=== PATIENT | female | born 1980 | race Caucasian/White ===

== ENCOUNTER 2018-02-18 14:55 | Observation (INO) ==
[2018-02-18] MEDS ORDERED: ZOFRAN INJ 4 MG VIAL IVP PRN (16:25)
[2018-02-18] MEDS ORDERED: PHENERGAN INJ 25 MG IV PRN (16:25)
[2018-02-18] MEDS ORDERED: D5 NS 1000 ML 1,000 ML IV ONE ×2 (16:25→16:53)
[2018-02-18] MEDS ORDERED: NORCO 5/325 MG TAB PO PRN (16:25)
--- NOTE | 2018-02-18 16:50 | RAD ---
Examination: Abdomen with PA chest, three views History: Pain Findings: PA chest is normal. Supine and upright views of abdomen indicate normal gas pattern, no mass, ascites or visceral enlargement. There are surgical clips in the right upper quadrant. There is no evidence for free air or pathologic calcification. Impression: Postsurgical findings consistent with cholecystectomy. No acute chest or abdominal process identified. Reported By:
[2018-02-18 16:59] LABS: BASOPHILS % (AUTO) 0.3 % (0.2-1.0); EOSINOPHILS % (AUTO) 1.3 % (0.9-2.9); HEMOGLOBIN 13.3 g/dL (12.0-16.0); LYMPHOCYTES # (AUTO) 0.8 X10^3/uL (1.3-2.9); LYMPHOCYTES % (AUTO) 27.6 % (21.0-51.0); MEAN CORPUSCULAR HEMOGLOBIN 26.9 pg (27.0-34.0); MEAN CORPUSCULAR HGB CONC 34.1 g/dL (33.0-35.0); MEAN CORPUSCULAR VOLUME 78.7 fL (80.0-100.0); MEAN PLATELET VOLUME 8.1 fL (7.4-11.0); MONOCYTES # (AUTO) 0.4 x10^3/uL (0.3-0.8); MONOCYTES % (AUTO) 11.9 % (0.0-13.0); NEUTROPHILS # (AUTO) 1.8 x10^3/uL (2.2-4.8); NEUTROPHILS % (AUTO) 58.9 % (42.0-75.0); PLATELET COUNT 207 X10^3/uL (150.0-450.0); RED BLOOD COUNT 4.95 X10^6/uL (3.5-5.4); RED CELL DISTRIBUTION WIDTH 13.5 % (11.6-16.5)
[2018-02-18 17:35] LABS: ALANINE AMINOTRANSFERASE 29 Units/L (12-78); ALBUMIN 3.2 g/dL (3.4-5.0); ALKALINE PHOSPHATASE 45 Units/L (46-116); ASPARTATE AMINO TRANSFERASE 19 Units/L (15-37); BLOOD UREA NITROGEN 8 mg/dL (7-18); CALCIUM 8.4 mg/dL (8.5-10.1); CARBON DIOXIDE 25.7 mmol/L (21-32); CHLORIDE 103 mmol/L (98-107); CREATININE 0.71 mg/dL (0.55-1.02); SODIUM 138 mmol/L (136-145); TOTAL PROTEIN 6.9 g/dL (6.4-8.2); eGFR NON BLACK RACES > 60 (>60)
[2018-02-18 17:40] VITALS: BMI 24.7
[2018-02-18 18:00] LABS: BILIRUBIN,URINE NEGATIVE (NEGATIVE); BLOOD/HEMOGLOBIN,URINE 4+ (NEGATIVE); GLUCOSE, URINE NEGATIVE (NEGATIVE); KETONES,URINE 4+ (NEGATIVE); LEUKOCYTE ESTERASE ,URINE 1+ (NEGATIVE); NITRITES,URINE NEGATIVE (NEGATIVE); PROTEIN,URINE 2+ (NEGATIVE); UROBILINOGEN,URINE NORMAL (NORMAL)
[2018-02-18 18:02] LABS: APPEARANCE,URINE HAZY (CLEAR); COLOR,URINE YELLOW (YELLOW)
[2018-02-18] MEDS ORDERED: NS 1/2 1000 ML IV 1,000 ML IV ONE (18:06)
[2018-02-18 18:07] LABS: BACTERIA,URINE 1+ /HPF (NEGATIVE); MUCUS,URINE MODERATE /HPF (NEGATIVE); SQUAMOUS EPITHELIAL CELL,UR MODERATE /HPF (NEGATIVE)
[2018-02-18] MEDS: NS 1/2 1000 ML IV 1,000 ML IV SCH (18:12)
[2018-02-18] MEDS: PROTONIX INJ 40 MG VIAL IVP SCH ×2 (18:12→22:20)
[2018-02-18] MEDS: CIPRO IV 400 MG PREMIX* 400 MG/200 ML IV.SOLN. IV SCH ×2 (18:13→22:20)
[2018-02-18 18:51] LABS: STOOL FOR WBC POSITIVE (NEGATIVE)
[2018-02-18] MEDS ORDERED: POTASSIUM CHL 60 MEQ/NS 0.45% 500 ML IV PRN (19:19)
[2018-02-18] MEDS ORDERED: POTASSIUM CHL 40 MEQ/NS 0.45% 500 ML IV PRN (19:19)
[2018-02-18] MEDS ORDERED: K-RIDER 10 MEQ/NS 100 ML 10 MEQ/100 ML BAG IV PRN (19:19)
[2018-02-18] MEDS ORDERED: MICRO K EXTEN CAP 10 MEQ PO PRN (19:19)
[2018-02-18] MEDS ORDERED: POTASSIUM CHLORIDE LIQ 20 MEQ UDC PO PRN (19:19)
[2018-02-18] MEDS ORDERED: KLOR-CON PO PRN (19:19)
[2018-02-18 19:29] LABS: CRYPTOSPORIDIUM PARVUM ANTIGEN NEGATIVE (NEGATIVE); GIARDIA LAMBLIA ANTIGEN NEGATIVE (NEGATIVE)
[2018-02-18] MEDS: K-DUR TAB 20 MEQ PO PRN (21:02)
[2018-02-19] MEDS: NS 1/2 1000 ML IV 1,000 ML IV SCH ×2 (01:32→05:07)
[2018-02-19] MEDS ORDERED: NS 1/2 1000 ML IV 1,000 ML IV ONE (05:01)
[2018-02-19] MEDS ORDERED: TYLENOL 325 MG TAB PO PRN (05:07)
[2018-02-19] MEDS ORDERED: TYLENOL 325 MG TAB PO ONE (05:08)
[2018-02-19 06:13] LABS: BASOPHILS % (AUTO) 0.3 % (0.2-1.0); EOSINOPHILS % (AUTO) 0.9 % (0.9-2.9); HEMATOCRIT 36.1 % (36.0-47.0); HEMOGLOBIN 12.2 g/dL (12.0-16.0); LYMPHOCYTES # (AUTO) 0.9 X10^3/uL (1.3-2.9); LYMPHOCYTES % (AUTO) 32.3 % (21.0-51.0); MEAN CORPUSCULAR HEMOGLOBIN 26.9 pg (27.0-34.0); MEAN CORPUSCULAR HGB CONC 33.9 g/dL (33.0-35.0); MEAN CORPUSCULAR VOLUME 79.5 fL (80.0-100.0); MEAN PLATELET VOLUME 8.3 fL (7.4-11.0); MONOCYTES # (AUTO) 0.3 x10^3/uL (0.3-0.8); MONOCYTES % (AUTO) 11.1 % (0.0-13.0); NEUTROPHILS # (AUTO) 1.6 x10^3/uL (2.2-4.8); NEUTROPHILS % (AUTO) 55.4 % (42.0-75.0); PLATELET COUNT 198 X10^3/uL (150.0-450.0); RED BLOOD COUNT 4.54 X10^6/uL (3.5-5.4); RED CELL DISTRIBUTION WIDTH 13.6 % (11.6-16.5); WHITE BLOOD COUNT 2.9 X10^3/uL (3.6-10.0)
[2018-02-19 06:55] LABS: ALANINE AMINOTRANSFERASE 23 Units/L (12-78); ALBUMIN 2.8 g/dL (3.4-5.0); ALKALINE PHOSPHATASE 37 Units/L (46-116); ASPARTATE AMINO TRANSFERASE 19 Units/L (15-37); BLOOD UREA NITROGEN 3 mg/dL (7-18); CALCIUM 7.8 mg/dL (8.5-10.1); CARBON DIOXIDE 23.9 mmol/L (21-32); CHLORIDE 104 mmol/L (98-107); COR CA(FOR HYPOALB) 8.8 mg/dL (8.5-10.1); CREATININE 0.57 mg/dL (0.55-1.02); MAGNESIUM 1.3 mg/dL (1.7-2.9); SODIUM 138 mmol/L (136-145); TOTAL PROTEIN 6.1 g/dL (6.4-8.2); eGFR NON BLACK RACES > 60 (>60)
[2018-02-19] MEDS ORDERED: MAGNESIUM SULFATE 1 GRAM/100 mL PREMIX 2 G/200 ML BAG IV SCH (07:15)
[2018-02-19] MEDS: PROTONIX INJ 40 MG VIAL IVP SCH (08:13)
[2018-02-19] MEDS: CIPRO IV 400 MG PREMIX* 400 MG/200 ML IV.SOLN. IV SCH (08:13)
[2018-02-19] MEDS: K-DUR TAB 20 MEQ PO PRN (08:13)
[2018-02-19] MEDS: MAGNESIUM SULFATE 1 GRAM/100 mL PREMIX 4 G/400 ML BAG IV SCH ×4 (08:59→12:14)
--- NOTE | 2018-02-19 10:55 | DR.H&P ---
H&P - History & Physical for Day of: H&P Date: 02/18/18 - Chief Complaint Chief Complaint: INTRACTABLE N/V/D WITH ABDOMINAL PAIN - History of Present Illness History of Present Illness: 37 WF DIRECT ADMIT WITH NVD AND ABDOMINAL PAIN WORSE TO EPIGASTRIC AREA. PT STATES SHE HAS BEEN SICK FOR 4 DAYS, UNABLE TO HOLD FOOD DOWN X3 DAYS. PT HAS RECEIVED IV FLUIDS FOR HYDRATION BY PCP AND PO ANTIACIDS AND ANTIEMETICS WITHOUT IMPROVEMENT. PT CO FEELING WEAK AND [id number] TIMES PER DAY. PT DENIES ANY PMH, NO DM HTN OR CARDIAC DISEASE. PT ADMITTED FOR TREATMENT OF ACUTE GASTROENTERITIS AND DEHYDRATION. - Past Medical History Past Medical History: denies: Anxiety, Arthritis, Asthma, COPD, Coronary Artery Disease, Diabetes, Hypertension - Past Surgical History Surgical History: Cholecystectomy - Family History Family Medical History: Diabetes Mellitus, ID - Social History Does patient currently use any type of tobacco product: No Have you used tobacco products in the last 12 months: No Type of Tobacco Use: None Does any household member use tobacco: Yes ( chewing tobacco) Alcohol Use: None - Medications Home Medications: No Known Drug Allergies Allergy (Verified 02/18/18 16:23) CONTINUE taking the following medications NK 02/18/18 [History] - Review of Systems Constitutional: Chills, Weakness Eyes: No Symptoms Reported ENT: No Symptoms Reported Respiratory: No Symptoms Reported Cardiovascular: Palpitations Gastrointestinal: Nausea, Vomiting, Abdominal Pain, Diarrhea Genitourinary: No Symptoms Reported Musculoskeletal: No Symptoms Reported Skin: No Symptoms Reported Neurological: Weakness - Physical Exam Vital Signs: Temperature 99.1 F Pulse Rate [Right Brachial] 85 Pulse Rate 83 Respiratory Rate 22 Blood Pressure [Right Arm] 110/65 Blood Pressure 108/62 O2 Sat by Pulse Oximetry 98 Oriented: Normal Eyes: Normal Ear: Normal Nose: Normal Throat: Normal Respiratory: Clear Throughout Cardiovascular: Normal : Normal Auscultation: Bowel Sounds: Increased Palpation: Normal Tenderness: RUQ, LUQ, Epigastric Skin: Decreased Turgur Musculoskeletal: Normal Psychiatric: Normal Speech Pattern: Clear, Appropriate - Assessment/Plan (1) Abdominal pain Status: Acute Plan: ADMIT, ABD SERIES ON ADMISSION. STOOL STUDIES, ADMISSION LABS CBC CMP UA. IV HYDRATION, PAIN AND NAUSEA CONTROL. ELECTROLYTE REPLACEMENT, PPI THERAPY (2) Gastroenteritis and colitis, viral Status: Acute (3) Dehydration Status: Acute (4) Hypokalemia Status: Acute - Allergies Allergies/Adverse Reactions: Allergies Allergy/AdvReac Type Severity Reaction Status Date / Time No Known Drug Allergies Allergy Verified 02/18/18 16:23
[2018-02-19 14:26] VITALS: BP 103/68
== END 2018-02-19 15:15 | disposition home or self-care (01) ==
LOC: ICU
PROVIDERS: ADMIT Internal Medicine; ATTEND Internal Medicine
DX: E87.8 Other disorders of electrolyte and fluid balance, not elsewhere classified; I25.10 Atherosclerotic heart disease of native coronary artery without angina pectoris; R11.2 Nausea with vomiting, unspecified; R19.7 Diarrhea, unspecified; E87.6 Hypokalemia; R10.84 Generalized abdominal pain; F41.8 Other specified anxiety disorders; I10 Essential (primary) hypertension; J44.9 Chronic obstructive pulmonary disease, unspecified; E11.9 Type 2 diabetes mellitus without complications; K52.89 Other specified noninfective gastroenteritis and colitis; E86.0 Dehydration
CPT/HCPCS: 36415; 74022; 80053; 81001; 82270; 83630; 83735; 84132; 85025; 87045; 87328; 87329; 87427; 87449; 87493; 87899; 99217; 99218; A4222; C9113; G0378; J0744; J2405; J3475; J3490; J7042